=== PATIENT | male | born 1995 | race Asian ===

== ENCOUNTER 2017-08-05 19:53 | Inpatient (IN) | payer OTHER ==
[~2017-08-05] VITALS: Ht 175.3 cm; Wt 57.2 kg
[2017-08-05] MEDS ORDERED: SODIUM CHLORIDE 0.9% 1,000ML IVBOLUS ONE (21:00)
[2017-08-05] MEDS ORDERED: AMPICILLIN/SULBACTAM 3 GM in SODIUM CHLORIDE 0.9% 100 ML IV ONE (21:00)
[2017-08-05] MEDS ORDERED: SODIUM CHLORIDE FLUSH 10ML SYR IVF ONE (21:00)
[2017-08-05 21:04] LABS: MEAN CORPUSCULAR HEMOGLOBIN 30.9 pg (27.5-34.5); MEAN CORPUSCULAR HGB CONC 33.6 g/dL (33.2-36.2); MEAN CORPUSCULAR VOLUME 91.8 fL (81-97); MEAN PLATELET VOLUME 8.2 fL (7.4-10.4); PLATELET COUNT 188 x10^3/uL (130-400); RED BLOOD COUNT 5.62 x10^6/uL (4.38-5.82)
[2017-08-05 21:23] LABS: ALBUMIN 4.1 g/dL (3.4-5.0); ANION GAP 10 mmol/L (5-15); CALCIUM 9.2 mg/dL (8.5-10.1); CHLORIDE 103 mmol/L (98-107); CREATININE 1.21 mg/dL (0.7-1.3)
[2017-08-05 21:36] LABS: BASOPHILS # (AUTO) 0.06 x10^3/uL (0-0.1); BASOPHILS % (AUTO) 0 % (0-1); EOSINOPHILS % (AUTO) 0 % (1-7); LYMPHOCYTES # (AUTO) 5.12 x10^3/uL (1-3.4); LYMPHOCYTES % (AUTO) 41 % (22-44); MD SCAN; MONOCYTES # (AUTO) 1.63 x10^3/uL (0.2-0.8); MONOCYTES % (AUTO) 13 % (2-9); NEUTROPHILS # (AUTO) 5.85 x10^3/uL (1.8-6.8); NEUTROPHILS % (AUTO) 46 % (42-75)
[2017-08-05] MEDS ORDERED: OMNIPAQUE 350 MG/ML, 100ML BOTTLE ONE (22:08)
[2017-08-05] MEDS ORDERED: DEXAMETHASONE 4 MG/ML, 5ML ONE (22:59)
[2017-08-05] MEDS ORDERED: DEXAMETHASONE 4 MG/ML, 1ML IVPush ONE (23:00)
[2017-08-05] MEDS ORDERED: MORPHINE SULFATE 4 MG/ML, 1ML ONE (23:05)
[2017-08-05] MEDS ORDERED: ONDANSETRON 2MG/ML, 2ML ONE (23:05)
[2017-08-05] MEDS: AMPICILLIN/SULBACTAM 3 GM in SODIUM CHLORIDE 0.9% 100 ML IV SCH (23:15)
[2017-08-05] MEDS ORDERED: ONDANSETRON 2MG/ML, 2ML IVPush PRN (23:30)
[2017-08-05] MEDS ORDERED: SODIUM CHLORIDE FLUSH 10ML SYR IVF PRN (23:30)
[2017-08-05] MEDS ORDERED: MORPHINE SULFATE 4 MG/ML, 1ML IVPush PRN (23:30)
[2017-08-06] MEDS: AMPICILLIN/SULBACTAM 3 GM in SODIUM CHLORIDE 0.9% 100 ML IV SCH ×2 (05:59→13:55)
[2017-08-06 10:21] VITALS: BP 128/76
[2017-08-06] MEDS ORDERED: BENZOCAINE 20% SPRAY 0.5ML TP ONE (13:30)
[2017-08-06] MEDS ORDERED: AMOX1TAB64 PO (14:49)
[2017-08-06] MEDS ORDERED: PRED5TAB19 PO (14:52)
[2017-08-06] MEDS ORDERED: DEXAMETHASONE 4 MG/ML, 1ML IVPush SCH (16:00)
== END 2017-08-06 18:15 | disposition home or self-care (01) | DRG 134 ==
LOC: ED 22:12 → EDIP 08-06 00:02 → 3WST 08-06 10:10
PROVIDERS: ADMIT Otolaryngology; ATTEND Otolaryngology
PROC: 0C9P3ZX Drainage of Tonsils, Percutaneous Approach, Diagnostic (ICD-10-PCS; principal; 2017-08-06)
DX: J36 Peritonsillar abscess (principal)
CPT/HCPCS: 36415; 70491; 80048; 82040; 85025; 86308; 96365; 96375; J0295; J1100; J2405; Q9967; J7030